=== PATIENT | female | born 1985 | race American Indian/Alaskan Native ===

== ENCOUNTER 2017-01-27 13:06 | Emergency (ER) | payer MEDICAID ==
[2017-01-27 13:46] VITALS: BP 125/83
[2017-01-27] MEDS ORDERED: predniSONE 20 MG Tab PO ONE (14:19)
[2017-01-27] MEDS ORDERED: Loratadine 10 MG Tab PO ONE (14:20)
--- NOTE | 2017-01-27 14:39 | EDM.PDOC ---
Scribed by Charleen Larios 01/27/17 [id number] for Olivier Pritchard MD ED HPI GENERAL MEDICAL PROBLEM - General Chief Complaint: Skin Complaint Stated Complaint: POISON IV [id number] Time Seen by Provider: 01/27/17 14:00 Source of Information: Reports: Patient, RN, RN Notes Reviewed History Limitations: Reports: No Limitations - History of Present Illness INITIAL COMMENTS - FREE TEXT/NARRATIVE: Exposed to poison jenifer on . Woke on Saturday with itchy, burning rash on face, arms, and neck. Denies swelling in mouth, tongue or throat. Location: Reports: Face, Neck, Upper Extremity, Left, Upper Extremity, Right Severity: Severe Improves with: Reports: None Worsens with: Reports: None Associated Symptoms: Reports: No Other Symptoms Face Pain Score (Numeric/FACES): 6 - Related Data Allergies Allergy/AdvReac Type Severity Reaction Status Date / Time animal dander Allergy Itching Verified 01/27/17 13:42 Home Meds: Home Meds . [No Known Home Meds] 05/22/14 [History] Past Medical History - Past Health History Medical/Surgical History: Denies Medical/Surgical History Other Dermatologic History: tatoos to upper arms,hands, back and Rt leg Social & Family History - Family History Cardiac: Reports: Other (See Below) Other Cardiac Family History: "heart disease" Endocrine/Metabolic: Reports: Diabetes, type II - Tobacco Use Smoking Status *Q: Never Smoker Second Hand Smoke Exposure: No - Alcohol Use Days Per Week of Alcohol Use: 0 Number of Drinks Per Day: 3 Total Drinks Per Week: 0 - Recreational Drug Use Recreational Drug Use: Yes Drug Use in Last 12 Months: Yes Recreational Drug Type: Reports: Marijuana/Hashish Recreational Drug Use Frequency: Socially Recreational Drug Last Use: JULY 2015 ED ROS GENERAL - Review of Systems Review Of Systems: ROS reveals no pertinent complaints other than HPI. ED EXAM, SKIN/RASH Exam: See Below Exam Limited By: No Limitations General Appearance: Alert, WD/WN, No Apparent Distress Eye Exam: Bilateral Eye: Normal Inspection Ears: Normal External Exam, Normal Canal, Hearing Grossly Normal, Normal TMs Nose: Normal Inspection, Normal Mucosa, No Blood Throat/Mouth: Normal Inspection, Normal Lips, Normal Teeth, Normal Gums, Normal Oropharynx, Normal Voice, No Airway Compromise Head: Atraumatic, Normocephalic Neck: Normal Inspection, Supple, Non-Tender, Full Range of Motion Respiratory/Chest: No Respiratory Distress, Lungs Clear, Normal Breath Sounds, No Accessory Muscle Use, Chest Non-Tender Cardiovascular: Normal Peripheral Pulses, Regular Rate, Rhythm, No Edema, No Gallop, No JVD, No Murmur, No Rub Back Exam: Normal Inspection, Full Range of Motion, NT Extremities: Normal Inspection, Normal Range of Motion, Non-Tender, No Pedal Edema, Normal Capillary Refill Neurological: Alert, Oriented, CN II-XII Intact, Normal Cognition, Normal Gait, Normal Reflexes, No Motor/Sensory Deficits Psychiatric: Normal Affect, Normal Mood Skin: Other (slightly erythematous raised vesicles and bulla with excoriations to face, neck, and bilateral upper extremities. ) Lymphatic: No Adenopathy Course - Vital Signs Last Recorded V/S: Last Vital Signs Temp 37.2 C 01/27/17 13:45 Pulse 63 01/27/17 13:45 Resp 16 01/27/17 13:45 BP 125/83 01/27/17 13:45 Pulse Ox 100 01/27/17 13:45 - Orders/Labs/Meds Meds: Medications Discontinued Medications Generic Name Dose Route Start Last Admin Trade Name Freq PRN Reason Stop Dose Admin Loratadine 20 mg 01/27/17 14:20 Claritin PO 01/27/17 14:21 ONETIME ONE Prednisone 40 mg 01/27/17 14:19 Prednisone PO 01/27/17 14:20 ONETIME ONE Departure - Departure Time of Disposition: 14:19 Disposition: Home, Self-Care 01 Condition: Good Clinical Impression: Poison jenifer dermatitis - Discharge Information Instructions: Poison Jenifer Dermatitis, [id number] Forms: ED Department Discharge Additional Instructions: RX: Prednisone 20mg. RX: Zyrtec 10mg. Use OTC calamine lotion. Followup in clinic if not improving in 3 days. I have read and agree with the documentation that has been completed regarding this visit. By signing this record, I attest that the documentation was completed in my physical presence and is an accurate record of the encounter.
== END 2017-01-27 15:00 | disposition home or self-care (01) ==
LOC: DL.ED 13:06
DX: L23.7 Allergic contact dermatitis due to plants, except food (principal); E11.9 Type 2 diabetes mellitus without complications; Z91.09 Other allergy status, other than to drugs and biological substances
CPT/HCPCS: 99282; A9270

== ENCOUNTER 2018-02-07 23:09 | Inpatient (IN) | payer MEDICAID ==
[2018-02-07] MEDS ORDERED: Lactated Ringers 1,000 ML IV SCH (23:30)
[2018-02-07] MEDS ORDERED: Sodium Chloride 0.9% 100 ML ONE (23:48)
[2018-02-07] MEDS: Ampicillin 2 GM in Sodium Chloride 0.9% 100 ML IV ONE (23:57)
[2018-02-08] MEDS ORDERED: Zolpidem 5 MG Tab PO PRN (00:28)
[2018-02-08] MEDS ORDERED: Benzocaine/Menthol 20%-0.5% Spray 56 GM Canister TOP PRN (00:28)
[2018-02-08] MEDS ORDERED: Tranexamic Acid 1,000 MG in Sodium Chloride 0.9% 100 ML IV PRN (00:28)
[2018-02-08] MEDS ORDERED: Simethicone 80 MG Tab.Chew PO PRN (00:28)
[2018-02-08] MEDS ORDERED: Misoprostol 400 MCG (4 X 100 MCG TAB) RECTAL PRN (00:28)
[2018-02-08] MEDS ORDERED: Carboprost Tromethamine 250 MCG/1 ML Amp IM PRN (00:28)
[2018-02-08] MEDS ORDERED: Sodium Chloride 0.9% 10 ML Syringe FLUSH PRN (00:28)
[2018-02-08] MEDS ORDERED: Oxytocin 10 Units/1 ML SDV IM PRN (00:28)
--- NOTE | 2018-02-08 00:47 | PCM.DEL ---
L & D Note - General Info Date of Service: 02/08/18 ( at 0018) Mother's Due Date: 03/01/18 (By 29 4/7 week U/S.) - Delivery Note Labor: Spontaneous, Augmented by ARM Delivery Outcome: Livebirth Presentation: Vertex Nuchal Cord: None Anesthesia Type: None Anesthetic: Lidocaine (Xylocaine) 0.5% Plain Amniotic Fluid Description: Meconium Stained Episiotomy Type: None Laceration: None Placenta: Intact, Spontaneous Cord: 3 Vessels Estimated Blood Loss: 350 Resuscitation Needed: No [place]: Suctioned, Bulb Syringe, Cathether, Stimulated, Warmed, [place] Used, Warmer Used Provider: Matias Acuna Score 1 min: 8 Score 5 min: 9 Second Stage Interventions: Reports: Pushing Effectively, Pushing, Pulls Own Legs Back Delivery Comments (Free Text/Narrative):: 32 y.o 11 para 6-1-3-7 female at 37 weeks gestation Active labor 5 cm on admission quickly dialated to complete AROM with moderate meconium stained fluid. , OA, Viable male over intact perineum, cord 3 vessel not around neck, Placenta delivered by simple expression intact, Mother and in good condition. Weight- 6 lbs 6 oz Length- 18 3/4 inches 's 8 and 9. - General Info Date of Service: 02/07/18 (36 6/7 week Active labor) Pain Score: 10 (With contractions) - Review of Systems General: Reports: No Symptoms HEENT: Reports: No Symptoms Pulmonary: Reports: No Symptoms Cardiovascular: Reports: No Symptoms Gastrointestinal: Reports: No Symptoms Genitourinary: Reports: No Symptoms Musculoskeletal: Reports: No Symptoms Neurological: Reports: No Symptoms Psychiatric: Reports: No Symptoms - Patient Data Lab Results Last 24 Hours: Laboratory Results - last 24 hr 02/07/18 Range/Units 23:45 WBC 13.7 H (5.0-10.0) 10^3/uL RBC 3.94 L (4.2-5.4) 10^6/uL Hgb 10.8 L (12.0-16.0) g/dL Hct 32.8 L (37.0-47.0) % MCV 83.2 (80-100) fL MCH 27.4 (27.0-34.0) pg MCHC 32.9 L (33.0-35.0) g/dL Plt Count 269 (150-450) 10^3/uL Med Orders - Current: Current Medications Acetaminophen (Tylenol) 650 mg PO Q6H PRN PRN Reason: mild pain or fever Benzocaine/Menthol (Dermoplast Pain Relief [place]) 0 gm TOP Q4H PRN PRN Reason: Perineal comfort measures Carboprost Tromethamine (Hemabate Ds) 250 mcg IM ASDIRECTED PRN PRN Reason: Excessive vaginal bleeding Docusate Sodium (Colace) 100 mg PO BID PRN PRN Reason: Constipation Tranexamic Acid 1,000 mg/ (Sodium Chloride) 110 mls @ 660 mls/hr IV ONETIME PRN PRN Reason: Bleeding Ibuprofen (Motrin) 800 mg PO Q8H PRN PRN Reason: Mild Pain or Fever Misoprostol (Cytotec) 800 mcg RECTAL ONETIME PRN PRN Reason: Hemorrhage Oxytocin (Pitocin) 10 unit IM ONETIME PRN PRN Reason: Bleeding Prenat Multivit/[place]/Iron/Folic Ac ( Plus Iron) 1 each PO DAILY ELLIOT Simethicone (Simethicone) 80 mg PO Q4H PRN PRN Reason: Gas Sodium Chloride (Saline Flush) 10 ml FLUSH ASDIRECTED PRN PRN Reason: Keep Vein Open Zolpidem Tartrate (Ambien) 5 mg PO BEDTIME PRN PRN Reason: Insomnia Discontinued Medications Ampicillin Sodium 2 gm/ Sodium (Chloride) 100 mls @ 200 mls/hr IV ONETIME ONE Stop: 02/08/18 00:06 Last Admin: 02/07/18 23:57 Dose: 200 mls/hr Sodium Chloride (Normal Saline) Confirm Administered Dose 100 mls @ as directed .ROUTE .STK-MED ONE Stop: 02/07/18 23:49 - Exam General: Alert, Oriented, Cooperative, Moderate Distress (from contractions) HEENT: Pupils Equal, Pupils Reactive, EOMI, Mucous Membr. Moist/[place] Neck: Supple, Trachea Midline Lungs: Clear to Auscultation, Normal Respiratory Effort Cardiovascular: Regular Rate, Regular Rhythm, No Murmurs GI/Abdominal Exam: Normal Bowel Sounds, Soft, Non-Tender, No Distention (Female) Exam: Normal External Exam, Normal Bimanual Exam, Cervical Dilatation (Complete with buldging bag of bell AROM Moderate meconium stained fluid), Enlarged Uterus, Heart Tones (130's to 140's) Back Exam: Normal Inspection, Full Range of Motion Extremities: Normal Inspection, Normal Range of Motion, Non-Tender, No Pedal Edema Skin: Warm, Dry, Intact Neurological: No New Focal Deficit Psy/Mental Status: Alert, Normal Affect, Normal Mood - Problem List Review Problem List Initiated/Reviewed/Updated: Yes - My Orders Last 24 Hours: My Active Orders 02/08/18 00:28 Cooling Warming Measures [RC] ASDIRECTED Acetaminophen [Tylenol] 650 mg PO Q6H PRN Benzocaine/Menthol [Dermoplast Pain Relief [place]] See Dose Instructions TOP Q4H PRN Carboprost Tromethamine [Hemabate DS] 250 mcg IM ASDIRECTED PRN Docusate Sodium [Colace] 100 mg PO BID PRN Ibuprofen [Motrin] 800 mg PO Q8H PRN Misoprostol [Cytotec] 800 mcg RECTAL ONETIME PRN Oxytocin [Pitocin] 10 unit IM ONETIME PRN Simethicone 80 mg PO Q4H PRN Sodium Chloride 0.9% [Saline Flush] 10 ml FLUSH ASDIRECTED PRN Tranexamic Acid [Cyklokapron] 1,000 mg Sodium Chloride 0.9% [Normal Saline] 100 ml IV ONETIME Zolpidem [Ambien] 5 mg PO BEDTIME PRN Resuscitation Status Routine 02/08/18 00:31 Patient Status [ADT] Routine Notify Provider Vital Signs OB [RC] ASDIRECTED Up ad Sasha [RC] ASDIRECTED Assess Lochia [WOMSER] Per Unit Routine Assess Uterine Involution [WOMSER] Per Unit Routine Breast Pump [WOMSER] Per Unit Routine Ice Therapy [OM.PC] Per Unit Routine Perineal Care [OM.PC] Per Unit Routine Saline Lock Insert [OM.PC] Urgent Sitz Bath [OM.PC] Per Unit Routine 02/08/18 00:33 Vital Signs [RC] PFP 02/08/18 09:00 Vit with Ca/FA/Iron [ Plus Iron] 1 each PO DAILY 02/09/18 06:00 CBC W/O DIFF,HEMOGRAM [HEME] Routine - Assessment Assessment:: 36 6/7 week IUP 11 Para 5-1-3-6 Grand multiparous Active labor Advanced dilitation Moderate meconium stained fluid - Plan Plan:: Expect vaginal delivery All questions answered. Dr. Acuna called for . Ampicillin 2 grams IV given per group B strep protocol since before 37 weeks gestation on admission.
[2018-02-08] MEDS ORDERED: Oxytocin/Normal Saline 30 UNIT/500 ML BAG IV SCH (01:30)
[2018-02-08] MEDS: Ibuprofen 800 MG Tab PO PRN ×3 (03:04→21:20)
[2018-02-08] MEDS: Ampicillin 2 GM in Sodium Chloride 0.9% 100 ML IV ONE (03:07)
--- NOTE | 2018-02-08 07:39 | PCM.PNPP ---
- General Info Date of Service: 02/08/18 (PPD # 0 S/P ) Functional Status: Reports: Pain Controlled, Tolerating Diet, Ambulating - Review of Systems General: Reports: No Symptoms HEENT: Reports: No Symptoms Pulmonary: Reports: No Symptoms Cardiovascular: Reports: No Symptoms Gastrointestinal: Reports: No Symptoms Genitourinary: Reports: No Symptoms Musculoskeletal: Reports: No Symptoms Skin: Reports: No Symptoms Neurological: Reports: No Symptoms Psychiatric: Reports: No Symptoms - General Info Date of Service: 02/08/18 (PPD # 0 S/P ) - Patient Data Weight - Most Recent: 146 lb Lab Results - Last 24 Hours: Laboratory Results - last 24 hr 02/07/18 Range/Units 23:45 WBC 13.7 H (5.0-10.0) 10^3/uL RBC 3.94 L (4.2-5.4) 10^6/uL Hgb 10.8 L (12.0-16.0) g/dL Hct 32.8 L (37.0-47.0) % MCV 83.2 (80-100) fL MCH 27.4 (27.0-34.0) pg MCHC 32.9 L (33.0-35.0) g/dL Plt Count 269 (150-450) 10^3/uL Med Orders - Current: Current Medications Acetaminophen (Tylenol) 650 mg PO Q6H PRN PRN Reason: mild pain or fever Benzocaine/Menthol (Dermoplast Pain Relief [place]) 0 gm TOP Q4H PRN PRN Reason: Perineal comfort measures Carboprost Tromethamine (Hemabate Ds) 250 mcg IM ASDIRECTED PRN PRN Reason: Excessive vaginal bleeding Docusate Sodium (Colace) 100 mg PO BID PRN PRN Reason: Constipation Tranexamic Acid 1,000 mg/ (Sodium Chloride) 110 mls @ 660 mls/hr IV ONETIME PRN PRN Reason: Bleeding Oxytocin/Sodium Chloride (Pitocin In Ns 30 Unit/500 Ml) 30 unit in 500 mls @ 2 mls/hr IV TITRATE ELLIOT; Protocol Last Admin: 02/08/18 00:19 Dose: 2 munits/min, 500 mls/hr Lactated Ringer's (Ringers, Lactated) 1,000 mls @ 125 mls/hr IV ASDIRECTED ELLIOT Last Admin: 02/08/18 04:52 Dose: 125 mls/hr Ibuprofen (Motrin) 800 mg PO Q8H PRN PRN Reason: Mild Pain or Fever Last Admin: 02/08/18 03:04 Dose: 800 mg Misoprostol (Cytotec) 800 mcg RECTAL ONETIME PRN PRN Reason: Hemorrhage Oxytocin (Pitocin) 10 unit IM ONETIME PRN PRN Reason: Bleeding Prenat Multivit/[place]/Iron/Folic Ac ( Plus Iron) 1 each PO DAILY ELLIOT Simethicone (Simethicone) 80 mg PO Q4H PRN PRN Reason: Gas Sodium Chloride (Saline Flush) 10 ml FLUSH ASDIRECTED PRN PRN Reason: Keep Vein Open Zolpidem Tartrate (Ambien) 5 mg PO BEDTIME PRN PRN Reason: Insomnia Discontinued Medications Ampicillin Sodium 2 gm/ Sodium (Chloride) 100 mls @ 200 mls/hr IV ONETIME ONE Stop: 02/08/18 00:06 Last Admin: 02/08/18 03:07 Dose: 200 mls/hr Sodium Chloride (Normal Saline) Confirm Administered Dose 100 mls @ as directed .ROUTE .STK-MED ONE Stop: 02/07/18 23:49 - Interaction Disposition, : [place] in Room with Family Infant Interaction: Holding Infant Feeding: Breastfed ; Nursed Well Support Person: Significant Other - Recovery Exam Fundal Tone: Firm Fundal Level: At Umbilicus Fundal Placement: Midline Lochia Amount: Moderate Lochia Color: Rubra/Red Perineum Description: Intact, Minimal Bruising/Swelling Episiotomy/Laceration: None Bladder Status: Nonpalpable, Voiding Urinary Elimination: Voided - Exam General: Alert, Oriented, Cooperative, No Acute Distress HEENT: Pupils Equal, Pupils Reactive, EOMI, Mucous Membr. Moist/[place] Neck: Supple Lungs: Clear to Auscultation, Normal Respiratory Effort Cardiovascular: Regular Rate, Regular Rhythm, No Murmurs GI/Abdominal Exam: Normal Bowel Sounds, Soft, Non-Tender, No Organomegaly, No Distention Extremities: Normal Inspection, Normal Range of Motion, Non-Tender, No Pedal Edema, Normal Capillary Refill Skin: Warm, Dry, Intact Neurological: No New Focal Deficit, Normal Gait, Normal Speech, Normal Tone Psy/Mental Status: Alert, Normal Affect, Normal Mood - Problem List Review Problem List Initiated/Reviewed/Updated: Yes - My Orders Last 24 Hours: My Active Orders 02/07/18 23:30 Lactated Ringers [Ringers, Lactated] 1,000 ml IV ASDIRECTED 02/08/18 00:28 Cooling Warming Measures [RC] ASDIRECTED Acetaminophen [Tylenol] 650 mg PO Q6H PRN Benzocaine/Menthol [Dermoplast Pain Relief [place]] See Dose Instructions TOP Q4H PRN Carboprost Tromethamine [Hemabate DS] 250 mcg IM ASDIRECTED PRN Docusate Sodium [Colace] 100 mg PO BID PRN Ibuprofen [Motrin] 800 mg PO Q8H PRN Misoprostol [Cytotec] 800 mcg RECTAL ONETIME PRN Oxytocin [Pitocin] 10 unit IM ONETIME PRN Simethicone 80 mg PO Q4H PRN Sodium Chloride 0.9% [Saline Flush] 10 ml FLUSH ASDIRECTED PRN Tranexamic Acid [Cyklokapron] 1,000 mg Sodium Chloride 0.9% [Normal Saline] 100 ml IV ONETIME Zolpidem [Ambien] 5 mg PO BEDTIME PRN Resuscitation Status Routine 02/08/18 00:31 Patient Status [ADT] Routine Notify Provider Vital Signs OB [RC] ASDIRECTED Assess Lochia [WOMSER] Per Unit Routine Assess Uterine Involution [WOMSER] Per Unit Routine Breast Pump [WOMSER] Per Unit Routine Ice Therapy [OM.PC] Per Unit Routine Perineal Care [OM.PC] Per Unit Routine Saline Lock Insert [OM.PC] Urgent Sitz Bath [OM.PC] Per Unit Routine 02/08/18 00:33 Vital Signs [RC] 08,20 02/08/18 01:30 Oxytocin/Normal Saline [Pitocin in NS 30 UNIT/500 ML] 30 unit in 500 ml IV TITRATE 02/08/18 09:00 Vit with Ca/FA/Iron [ Plus Iron] 1 each PO DAILY 02/09/18 06:00 CBC W/O DIFF,HEMOGRAM [HEME] Routine - Assessment Assessment:: PPD # 0 S/P Doing well - Plan Plan:: Continue present care.
[2018-02-08] MEDS ORDERED: Prenatal Multivitamin with Calcium/Folic Acid/Iron Tab PO SCH (09:00)
[2018-02-08] MEDS ORDERED: Calcium Carbonate 500 MG Tab.Chew PO PRN (09:38)
[2018-02-08] MEDS: Acetaminophen 325 MG Tab PO PRN (10:04)
[2018-02-08] MEDS: Docusate Sodium 100 MG Cap PO PRN ×2 (10:04→21:20)
[2018-02-09] MEDS: Acetaminophen 325 MG Tab PO PRN (01:03)
--- NOTE | 2018-02-09 06:03 | PCM.PNPP ---
- General Info Date of Service: 02/09/18 (PPD # 1 S/P ) Functional Status: Reports: Pain Controlled, Tolerating Diet, Ambulating, Urinating - Review of Systems General: Reports: No Symptoms HEENT: Reports: No Symptoms Pulmonary: Reports: No Symptoms Cardiovascular: Reports: No Symptoms Gastrointestinal: Reports: No Symptoms Genitourinary: Reports: No Symptoms Musculoskeletal: Reports: No Symptoms Skin: Reports: No Symptoms Neurological: Reports: No Symptoms Psychiatric: Reports: No Symptoms - General Info Date of Service: 02/09/18 (PPD # 1 S/P ) - Patient Data Vital Signs - Most Recent: Last Vital Signs Temp 98.6 F 02/08/18 20:00 Pulse 106 H 02/08/18 20:00 Resp 18 02/08/18 20:00 BP 110/74 02/08/18 20:00 Pulse Ox 100 02/08/18 20:00 Weight - Most Recent: 146 lb Med Orders - Current: Current Medications Acetaminophen (Tylenol) 650 mg PO Q6H PRN PRN Reason: mild pain or fever Last Admin: 02/09/18 01:03 Dose: 650 mg Benzocaine/Menthol (Dermoplast Pain Relief [place]) 0 gm TOP Q4H PRN PRN Reason: Perineal comfort measures Calcium Carbonate/Glycine (Tums) 1,000 mg PO Q4H PRN PRN Reason: Dyspepsia Last Admin: 02/08/18 10:03 Dose: 1,000 mg Carboprost Tromethamine (Hemabate Ds) 250 mcg IM ASDIRECTED PRN PRN Reason: Excessive vaginal bleeding Docusate Sodium (Colace) 100 mg PO BID PRN PRN Reason: Constipation Last Admin: 02/08/18 21:20 Dose: 100 mg Tranexamic Acid 1,000 mg/ (Sodium Chloride) 110 mls @ 660 mls/hr IV ONETIME PRN PRN Reason: Bleeding Oxytocin/Sodium Chloride (Pitocin In Ns 30 Unit/500 Ml) 30 unit in 500 mls @ 2 mls/hr IV TITRATE ELLIOT; Protocol Last Titration: 02/08/18 00:35 Dose: Infused Lactated Ringer's (Ringers, Lactated) 1,000 mls @ 125 mls/hr IV ASDIRECTED ELLIOT Last Admin: 02/08/18 04:52 Dose: 125 mls/hr Ibuprofen (Motrin) 800 mg PO Q8H PRN PRN Reason: Mild Pain or Fever Last Admin: 02/08/18 21:20 Dose: 800 mg Misoprostol (Cytotec) 800 mcg RECTAL ONETIME PRN PRN Reason: Hemorrhage Oxytocin (Pitocin) 10 unit IM ONETIME PRN PRN Reason: Bleeding Prenat Multivit/[facility]/Iron/Folic Ac ( Plus Iron) 1 each PO DAILY ELLIOT Last Admin: 02/08/18 10:04 Dose: 1 each Simethicone (Simethicone) 80 mg PO Q4H PRN PRN Reason: Gas Last Admin: 02/08/18 10:04 Dose: 80 mg Sodium Chloride (Saline Flush) 10 ml FLUSH ASDIRECTED PRN PRN Reason: Keep Vein Open Zolpidem Tartrate (Ambien) 5 mg PO BEDTIME PRN PRN Reason: Insomnia Discontinued Medications Ampicillin Sodium 2 gm/ Sodium (Chloride) 100 mls @ 200 mls/hr IV ONETIME ONE Stop: 02/08/18 00:06 Last Admin: 02/08/18 03:07 Dose: 200 mls/hr Sodium Chloride (Normal Saline) Confirm Administered Dose 100 mls @ as directed .ROUTE .STK-MED ONE Stop: 02/07/18 23:49 Last Admin: 02/08/18 19:33 Dose: Not Given - Infant Interaction Infant Disposition, : in Room with Family Interaction: Holding Infant Infant Feeding: Breastfed ; Nursed Well Support Person: Significant Other - Recovery Exam Fundal Tone: Firm Fundal Level: 1 Fingerbreadths Below Umbilicus Fundal Placement: Midline Lochia Amount: Small Lochia Color: Rubra/Red Perineum Description: Intact, Minimal Bruising/Swelling Episiotomy/Laceration: None Bladder Status: Voiding Urinary Elimination: Voided - Exam General: Alert, Oriented, Cooperative, No Acute Distress HEENT: Pupils Equal, Pupils Reactive, EOMI Neck: Supple Lungs: Clear to Auscultation, Normal Respiratory Effort Cardiovascular: Regular Rate, Regular Rhythm, No Murmurs GI/Abdominal Exam: Normal Bowel Sounds, Soft, Non-Tender, No Distention Extremities: Normal Inspection, Normal Range of Motion, Non-Tender, No Pedal Edema Skin: Warm, Dry, Intact Neurological: No New Focal Deficit, Normal Gait, Normal Speech, Normal Tone Psy/Mental Status: Alert, Normal Affect, Normal Mood - Problem List Review Problem List Initiated/Reviewed/Updated: Yes - My Orders Last 24 Hours: My Active Orders 02/08/18 09:00 Vit with Ca/FA/Iron [ Plus Iron] 1 each PO DAILY 02/08/18 09:38 Calcium Carbonate [Tums] 1,000 mg PO Q4H PRN 02/09/18 05:30 CBC W/O DIFF,HEMOGRAM [HEME] Routine - Assessment Assessment:: PPD # 1 S/P Doing well - Plan Plan:: Discharge to home Follow-up with Dr. Nguyễn for 6 week check-up Ibuprofen for pain as needed.
[2018-02-09] MEDS: Ibuprofen 800 MG Tab PO PRN ×2 (06:41→14:24)
[2018-02-09] MEDS ORDERED: Diphtheria,Pertussis(Acell),Tetanus Vaccine 0.5 ML SDV IM ONE (13:09)
[2018-02-09] MEDS: Docusate Sodium 100 MG Cap PO PRN (14:24)
[2018-02-09 16:28] VITALS: BP 105/60
--- NOTE | 2018-02-10 09:13 | HP ---
CHIEF COMPLAINT: "I am in labor." HISTORY OF PRESENT ILLNESS: Ms. Jean is a 32-year-old 11, para 6-1-3-7 female, who reported to Labor and Delivery with increasing force and frequency of contractions. On admission, she was noted to be 5 cm dilated and uncomfortable. She denies any nausea, vomiting, or diarrhea. No fever or chills. No hematochezia, hematemesis, or hematuria. No dysuria, frequency, or urgency with urination. No leg pain, leg edema, or back pain. She is very uncomfortable secondary to contractions and pelvic pressure. Her contractions are every 3 minutes apart. She has not had any issues in the . She was seeing Dr. Steve Nguyễn and had approximately 5 visits. PAST MEDICAL HISTORY: She denies any anemia, asthma, breast lesions, cancer, diabetes, seizure disorder, thyroid disorder, thromboembolic disease, blood transfusions, hypertension, heart disease, or lung problems. FAMILY HISTORY: Positive for diabetes and heart disease. No cancer, thyroid disease, or seizure disorder. PAST SURGICAL HISTORY: [place] tooth extraction and suction D and C for elective . OBSTETRICAL HISTORY: 10/11/2015, normal spontaneous vaginal delivery at 38-3/7 weeks' gestation. 10/03/2014, therapeutic AB in [place]. 08/06/2010, normal spontaneous vaginal delivery of a viable female infant at 40 weeks' gestation. 06/08/2009, normal spontaneous vaginal delivery of a female at 39 weeks' gestation. 07/07/2008, normal spontaneous vaginal delivery of a viable female infant at 39 weeks' gestation. 2007, spontaneous AB. 09/03/2006, delivery via normal spontaneous vaginal delivery of a viable male infant at 39-5/7 weeks' gestation. 2005, spontaneous AB. 01/03/2005, delivery of viable female via normal spontaneous vaginal delivery at 39 weeks' gestation. 10/05/2003, normal spontaneous vaginal delivery of a viable male at 36 weeks' gestation. SOCIAL HISTORY: She lives in [place] with 7 children, her mother, and her significant other. She denies any tobacco use, alcohol use, or illicit drug use. ALLERGIES: No known drug allergies. MEDICATIONS: vitamins. REVIEW OF SYSTEMS: All pertinent positive and negative review of systems per HPI. All other systems reviewed and are negative. A 10-point review of systems discussed with the patient. She has no issues. LABORATORY DATA: Blood type O positive. Antibody screen negative. Rubella immune. RPR nonreactive. Hepatitis B surface antigen nonreactive. HIV nonreactive. Hepatitis C antibody nonreactive. Group B Strep vaginal culture pending. OBJECTIVE: General: Well-developed, well-nourished female, in acute distress secondary to contractions. HEENT: Unremarkable. Neck: Supple without adenopathy. No thyromegaly. Lungs: Clear to auscultation. No wheezing, rhonchi, or rales noted. Cardiovascular: Regular rate and rhythm without murmurs. Abdomen: Gravid. Fundal height 36 cm. heart tones 130s to 140s. Contractions every 2 to 3 minutes apart. Genitourinary: Cervix is completely dilated, bulging bag of bell. Extremities: No edema, erythema, or tenderness noted. ASSESSMENT: 1. A 36-6/7 weeks' intrauterine . 2. Active labor, advanced dilatation. 3. Grand multiparous. PLAN: 1. Expect vaginal delivery. 2. We will AROM. 3. The patient treated with ampicillin 2 g IV before delivering secondary to no group B Strep vaginal culture results, and she is less than 37 weeks' gestation on admission. 4. Dr. Acuna called to evaluate the at . All questions answered. [facility] /[id number]
--- NOTE | 2018-02-10 09:15 | DISCH ---
INDICATION FOR ADMISSION: She is a 32-year-old 11, para 6-1-3-7 female, who reported to Labor and Delivery at 37 weeks' gestation in active labor. She was 5 cm on admission. She quickly dilated to complete. We did have artificial rupture of membranes with moderate meconium-stained fluid noted. She had a normal spontaneous vaginal delivery of a viable male over an intact perineum weighing 6 pounds 6 ounces and 18-3/4 inches long with scores of 8 at 1 minute and 9 at 5 minutes. She tolerated the rest of her hospital stay quite well. She was afebrile. Vital signs were stable. She tolerated her diet well and ambulated quite well. No complications occurred throughout her hospital stay. She was discharged to home on day #1. LABORATORY AND DIAGNOSTIC STUDIES: 02/07/2018, WBC 13.7, hemoglobin 10.8, hematocrit 32.8, and platelet count 269,000. 02/09/2018, WBC 13.0, hemoglobin 10.1, hematocrit 31.6, and platelet count 236,000. DISCHARGE INSTRUCTIONS: 1. Discharge to home. 2. Follow up with Dr. Nguyễn for 6-week checkup or sooner if problems develop. 3. No douching, tampons, or intercourse for 6 weeks. 4. Ibuprofen 800 mg 1 tab every 8 hours p.r.n. for pain. 5. Tylenol p.r.n. for pain. 6. Discharge instructions including activity, followup, medications, diet, and wound care were discussed with the patient. She understands these and is willing to comply with these. DISCHARGE DIAGNOSES: 1. A 37 weeks' intrauterine . 2. Active labor. 3. Artificial rupture of membranes. 4. Grand multiparous. 5. Moderate meconium-stained fluid. 6. Normal spontaneous vaginal delivery of a viable male weighing 6 pounds 6 ounces and 18-3/4 inches long with scores of 8 at 1 minute and 9 at 5 minutes. 7. Chronic anemia of . [facility] /[id number]
== END 2018-02-09 14:25 | disposition home or self-care (01) | DRG 775 ==
LOC: DL.OBCHECK 23:09 → DL.OB 23:50 → OBSVTOIN 02-08 00:18
PROVIDERS: ADMIT Obstetrics & Gynecology; ATTEND Obstetrics & Gynecology
PROC: 10E0XZZ Delivery of Products of Conception, External Approach (ICD-10-PCS; principal; 2018-02-08)
PROC: 10907ZC Drainage of Amniotic Fluid, Therapeutic from Products of Conception, Via Natural or Artificial Opening (ICD-10-PCS; 2018-02-08)
DX: O77.0 Labor and delivery complicated by meconium in amniotic fluid (principal); Z3A.36 36 weeks gestation of pregnancy; Z37.0 Single live birth; O99.013 Anemia complicating pregnancy, third trimester; D63.8 Anemia in other chronic diseases classified elsewhere
CPT/HCPCS: 36415; 59409; 85027; 90471; 90715; A9270-GY; J0290; J2590; J7050; J7120

== ENCOUNTER 2020-06-27 10:08 | Inpatient (IN) | payer MEDICAID ==
[2020-06-27] MEDS ORDERED: Misoprostol 400 MCG (4 X 100 MCG TAB) RECTAL PRN ×2 (11:00→11:03)
[2020-06-27] MEDS ORDERED: Oxytocin/Normal Saline 30 UNIT/500 ML BAG IV SCH (11:00)
[2020-06-27] MEDS ORDERED: Lidocaine 1% 30 ML SDV INJECT PRN (11:00)
[2020-06-27] MEDS ORDERED: Tranexamic Acid 1,000 MG in Sodium Chloride 0.9% 100 ML IV PRN ×2 (11:00→11:03)
[2020-06-27] MEDS ORDERED: Methylergonovine 0.2 MG/1 ML Amp IM PRN (11:00)
[2020-06-27] MEDS ORDERED: Carboprost Tromethamine 250 MCG/1 ML Amp IM PRN ×2 (11:00→11:03)
[2020-06-27] MEDS ORDERED: Sodium Chloride 0.9% 10 ML Syringe FLUSH PRN ×2 (11:00→11:03)
[2020-06-27] MEDS ORDERED: Lactated Ringers 1,000 ML IV SCH (11:00)
[2020-06-27] MEDS ORDERED: Lactated Ringers 1,000 ML IV ONE (11:00)
[2020-06-27] MEDS ORDERED: Docusate Sodium 100 MG Cap PO PRN (11:03)
[2020-06-27] MEDS ORDERED: Oxytocin 10 Units/1 ML SDV IM PRN (11:03)
[2020-06-27] MEDS ORDERED: Benzocaine/Menthol 20%-0.5% Spray 56 GM Canister TOP PRN (11:03)
[2020-06-27] MEDS ORDERED: Simethicone 80 MG Tab.Chew PO PRN (11:03)
[2020-06-27] MEDS ORDERED: Zolpidem 5 MG Tab PO PRN (11:03)
--- NOTE | 2020-06-27 12:20 | PCM.LDHP ---
L&D History of Present Illness - General Date of Service: 06/27/20 Admit Problem/Dx: Patient Status Order with Admit Dx/Problem 06/27/20 11:00 Patient Status [ADT] Routine Admission Diagnosis/Problem Admission Diagnosis/Problem labor - History of Present Illness Introduction:: Patient is a 35 yo at 34w3d who presented to Labor & Delivery in active labor. She was noted to be dilated to 7 or 8 cm. She thought her bag of water broke upon arrival. Her contractions started around 8 AM and picked up in frequency and intensity. She had late care with this due to uncertain dating. Her first ultrasound showed a 31 week . She had elevated blood pressures at her 2 visits but PIH labs were within normal limits. She denies headache, vision changes, RUQ abdominal pain, lower extremity edema. 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 Neurological History: Reports: None Dermatologic History: Reports: Urticaria Other Dermatologic History: tatoos to upper arms,hands, back and Rt leg - Past Surgical History HEENT Surgical History: Reports: Oral Surgery Social & Family History - Family History Family Medical History: No Pertinent Family History Cardiac: Reports: Other (See Below) Other Cardiac Family History: "heart disease" Endocrine/Metabolic: Reports: Diabetes, type II Oncologic: Reports: Breast - Tobacco Use Tobacco Use Status *Q: Never Tobacco User - Caffeine Use Caffeine Use: Reports: Coffee, Soda - Alcohol Use Alcohol Use History: No - Recreational Drug Use Recreational Drug Use: No H&P Review of Systems - Review of Systems: Review Of Systems: See Below General: Denies: Fatigue HEENT: Denies: Headaches, Visual Changes Pulmonary: Denies: Shortness of Breath, Cough Cardiovascular: Reports: Blood Pressure Problem. Denies: Edema, Lightheadedness Gastrointestinal: Reports: Nausea, Vomiting. Denies: Abdominal Pain Skin: Denies: Rash Neurological: Denies: Dizziness, Headache L&D Exam - Exam Exam: See Below - Vital Signs Vital Signs: Vital Signs (72 hours) 06/27/20 06/27/20 06/27/20 10:44 11:00 11:11 Temperature [ 97.3 F 98.0 F Temporal] Pulse, 68 63 Peripheral [ Right Brachial] Respiratory Rate Blood Pressure 135/90 145/99 H [Right Upper Arm] O2 Sat by Pulse Oximetry 06/27/20 06/27/20 06/27/20 11:26 11:41 11:56 Temperature [ Temporal] Pulse, 63 66 61 Peripheral [ Right Brachial] Respiratory Rate Blood Pressure 143/95 H 148/104 H 145/98 H [Right Upper Arm] O2 Sat by Pulse Oximetry 06/27/20 06/27/20 06/27/20 12:11 12:26 12:56 Temperature [ 98.0 F Temporal] Pulse, 77 75 79 Peripheral [ Right Brachial] Respiratory Rate Blood Pressure 156/104 H 140/95 H 142/101 H [Right Upper Arm] O2 Sat by Pulse Oximetry 06/27/20 06/27/20 06/27/20 13:30 16:00 20:00 Temperature [ 98.1 F 98.1 F Temporal] Pulse, 75 70 75 Peripheral [ Right Brachial] Respiratory 16 18 Rate Blood Pressure 143/87 H 146/94 H 130/80 [Right Upper Arm] O2 Sat by Pulse 98 Oximetry 06/28/20 06/28/20 00:50 05:50 Temperature [ 98.0 F 97.9 F Temporal] Pulse, 61 63 Peripheral [ Right Brachial] Respiratory 18 18 Rate Blood Pressure 146/98 H 137/94 H [Right Upper Arm] O2 Sat by Pulse 97 98 Oximetry - OB Specific Movement: Active Heart Tones: Present Heart Tones per Min: 145 Heart Rate (FHR) Variability: Moderate (6-25 bmp) Presentation: Left Occiput Anterior (CHRISTINA) - Exam General: Alert, Oriented HEENT: Conjunctiva Clear Neck: Supple, Trachea Midline Lungs: Clear to Auscultation, Normal Respiratory Effort Cardiovascular: Regular Rate, Regular Rhythm, Normal S1, Normal S2 GI/Abdominal Exam: Soft, Non-Tender Extremities: No Pedal Edema Skin: Warm, Dry, Intact Neurological: Reflexes Equal Bilateral - Patient Data Lab Results Last 24 hrs: Laboratory Results - last 24 hr 06/27/20 Range/Units 11:40 WBC 11.4 H (5.0-10.0) 10^3/uL RBC 3.96 L (4.2-5.4) 10^6/uL Hgb 11.4 L (12.0-16.0) g/dL Hct 34.7 L (37.0-47.0) % MCV 87.6 D (80-100) fL MCH 28.8 (27.0-34.0) pg MCHC 32.9 L (33.0-35.0) g/dL Plt Count 220 (150-450) 10^3/uL Result Diagrams: 06/28/20 05:49 06/27/20 11:40 - Problem List (1) labor SNOMED Code(s): 6295063 ICD Code: O60.00 - LABOR WITHOUT DELIVERY, UNSPECIFIED TRIMESTER Status: Acute Current Visit: Yes (2) Grand multipara in labor in third trimester SNOMED Code(s): 307078039, 794634746 ICD Code: O80 - ENCOUNTER FOR FULL-TERM UNCOMPLICATED DELIVERY Status: Acute Current Visit: Yes (3) Advanced maternal age (AMA) in SNOMED Code(s): 232177368 ICD Code: LWV4525 - Status: Acute Current Visit: Yes (4) History of gestational diabetes SNOMED Code(s): 953669233 ICD Code: Z86.32 - PERSONAL HISTORY OF GESTATIONAL DIABETES Status: Acute Current Visit: Yes (5) Gestational hypertension SNOMED Code(s): 027292336 ICD Code: O13.9 - GESTATIONAL HTN W/O SIGNIFICANT PROTEINURIA, UNSP TRIMESTER Status: Acute Current Visit: Yes (6) Rubella immune SNOMED Code(s): 500185613 ICD Code: Z78.9 - OTHER SPECIFIED HEALTH STATUS Status: Acute Current Visit: Yes (7) Anemia during SNOMED Code(s): 279965108 ICD Code: O99.019 - ANEMIA COMPLICATING , UNSPECIFIED TRIMESTER Status: Acute Current Visit: Yes (8) Late care SNOMED Code(s): 363012689, 629924336 ICD Code: O09.30 - SUPRVSN OF PREG W INSUFFICIENT ANTENAT CARE, UNSP TRIMESTER Status: Acute Current Visit: Yes Problem List Initiated/Reviewed/Updated: Yes Orders Last 24hrs: Active Orders 24 hr Category Date Time Status Patient Status [ADT] Routine ADT 06/27/20 11:00 Active Communication Order [RC] ASDIRECTED Care 06/27/20 11:00 Active Heart Tones [RC] PER UNIT ROUTINE Care 06/27/20 11:00 Active Notify Provider Vital Signs OB [RC] ASDIRECTED Care 06/27/20 11:00 Active Notify Provider [RC] PRN Care 06/27/20 11:00 Active Up ad Sasha [RC] ASDIRECTED Care 06/27/20 11:00 Active Up ad Sasha [RC] ASDIRECTED Care 06/27/20 11:03 Active Vital Signs [RC] PER UNIT ROUTINE Care 06/27/20 11:00 Active Vital Signs [RC] PFP Care 06/27/20 11:00 Active Regular Diet [DIET] Diet 06/27/20 Breakfast Active Regular Diet [DIET] Diet 06/27/20 Dinner Active Regular Diet [DIET] Diet 06/27/20 Lunch Active CBC W/O DIFF,HEMOGRAM [HEME] Routine Lab 06/27/20 11:03 Ordered CORONAVIRUS COVID-19 RAPID [MOLEC] Stat Lab 06/27/20 11:35 Received DRUG SCREEN, URINE [URCHEM] Routine Lab 06/27/20 12:19 Ordered Acetaminophen [TylenoL] Med 06/27/20 11:03 Active 650 mg PO Q6H PRN Benzocaine/Menthol [Dermoplast Pain Relief [place]] Med 06/27/20 11:03 Active See Dose Instructions TOP Q4H PRN Carboprost Tromethamine [Hemabate DS] Med 06/27/20 11:00 Active 250 mcg IM ASDIRECTED PRN Docusate Sodium [Colace] Med 06/27/20 11:03 Active 100 mg PO BID PRN Ibuprofen [Motrin] Med 06/27/20 11:03 Active 800 mg PO Q8H PRN Lactated Ringers [Ringers, Lactated] 1,000 ml Med 06/27/20 11:00 Active IV ASDIRECTED Lidocaine 1% [Xylocaine-MPF 1%] Med 06/27/20 11:00 Active 30 ml INJECT ASDIRECTED PRN Methylergonovine [Methergine] Med 06/27/20 11:00 Active 0.2 mg IM ASDIRECTED PRN Oxytocin [Pitocin] Med 06/27/20 11:03 Active 10 unit IM ONETIME PRN Oxytocin/Normal Saline [Pitocin in NS 30 UNIT/500 ML] Med 06/27/20 11:00 Acti ve 30 unit in 500 ml IV TITRATE Vit with Ca/FA/Iron [ Plus Iron] Med 06/28/20 09:00 Active 1 each PO DAILY Simethicone Med 06/27/20 11:03 Active 80 mg PO Q4H PRN Sodium Chloride 0.9% [Saline Flush] Med 06/27/20 11:00 Active 10 ml FLUSH ASDIRECTED PRN Tranexamic Acid [Cyklokapron] 1,000 mg Med 06/27/20 11:00 Active Sodium Chloride 0.9% [Normal Saline] 100 ml IV ONETIME Zolpidem [Ambien] Med 06/27/20 11:03 Active 5 mg PO BEDTIME PRN miSOPROStoL [Cytotec] Med 06/27/20 11:00 Active 800 mcg RECTAL ASDIRECTED PRN miSOPROStoL [Cytotec] Med 06/27/20 11:03 Active 800 mcg RECTAL ONETIME PRN Assess Lochia [WOMSER] Per Unit Routine Oth 06/27/20 11:03 Ordered Assess Uterine Involution [WOMSER] Per Unit Routine Oth 06/27/20 11:03 Ordered Breast Pump [WOMSER] Per Unit Routine Oth 06/27/20 11:03 Ordered Ice Therapy [OM.PC] Per Unit Routine Oth 06/27/20 11:03 Ordered Perineal Care [OM.PC] Per Unit Routine Oth 06/27/20 11:03 Ordered Saline Lock Insert [OM.PC] Routine Oth 06/27/20 11:00 Ordered Saline Lock Insert [OM.PC] Urgent Oth 06/27/20 11:03 Ordered Sitz Bath [OM.PC] Per Unit Routine Oth 06/27/20 11:03 Ordered Resuscitation Status Routine Resus Stat 06/27/20 11:00 Ordered Medication Orders Acetaminophen (Tylenol) 650 mg PO Q6H PRN PRN Reason: mild pain or fever Benzocaine/Menthol (Dermoplast Pain Relief [place]) 0 gm TOP Q4H PRN PRN Reason: Perineal comfort measures Carboprost Tromethamine (Hemabate Ds) 250 mcg IM ASDIRECTED PRN PRN Reason: HEMORRHAGE Docusate Sodium (Colace) 100 mg PO BID PRN PRN Reason: Constipation Tranexamic Acid 1,000 mg/ (Sodium Chloride) 110 mls @ 660 mls/hr IV ONETIME PRN PRN Reason: Bleeding Oxytocin/Sodium Chloride (Pitocin In Ns 30 Unit/500 Ml) 30 unit in 500 mls @ 2 mls/hr IV TITRATE ELLIOT; Protocol Lactated Ringer's (Ringers, Lactated) 1,000 mls @ 125 mls/hr IV ASDIRECTED ELLIOT Ibuprofen (Motrin) 800 mg PO Q8H PRN PRN Reason: Mild Pain or Fever Lidocaine HCl (Xylocaine-Mpf 1%) 30 ml INJECT ASDIRECTED PRN PRN Reason: Perineal Repair Methylergonovine Maleate (Methergine) 0.2 mg IM ASDIRECTED PRN PRN Reason: Hemorrhage Misoprostol (Cytotec) 800 mcg RECTAL ASDIRECTED PRN PRN Reason: Hemorrhage Misoprostol (Cytotec) 800 mcg RECTAL ONETIME PRN PRN Reason: Hemorrhage Oxytocin (Pitocin) 10 unit IM ONETIME PRN PRN Reason: Bleeding Prenat Multivit/[place]/Iron/Folic Ac ( Plus Iron) 1 each PO DAILY ELLIOT Simethicone (Simethicone) 80 mg PO Q4H PRN PRN Reason: Gas Sodium Chloride (Saline Flush) 10 ml FLUSH ASDIRECTED PRN PRN Reason: Keep Vein Open Zolpidem Tartrate (Ambien) 5 mg PO BEDTIME PRN PRN Reason: Insomnia Assessment/Plan Comment:: Admit to Labor and Delivery. Anticipate vaginal delivery. Post hemorrhage cart in room. 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 GBS status unknown and no time for antibiotics. See delivery note for details. Chayo Dumont MD
--- NOTE | 2020-06-27 12:21 | PCM.DEL ---
L & D Note - General Info Date of Service: 06/27/20 - Delivery Note Labor: Spontaneous Delivery Outcome: Livebirth Delivery Method: Spontaneous Vaginal Delivery-Single Presentation: Left Occiput Anterior (CHRISTINA) Nuchal Cord: None Anesthesia Type: None Amniotic Fluid Description: Meconium Stained Episiotomy Type: None Laceration: None Placenta: Intact, Spontaneous Cord: 3 Vessels Estimated Blood Loss: 250 Resuscitation Needed: Yes : Bulb Syringe, Stimulated, Warmed Provider: Chayo Dumont Score 1 min: 8 Score 5 min: 6 Score 10 min: 8 Delivery Comments (Free Text/Narrative):: Patient admitted in labor with advanced cervical dilation. She progressed to complete dilatation and pushed for 10 minutes. A viable female infant delivered over intact perineum. The anterior shoulder was delivered with gentle traction. The was placed on the maternal abdomen and the cord was clamped and cut. Placenta was delivered intact via active management. Oxytocin was initiated immediately following the delivery of the placenta. Cervix, vagina, and perineum were explored and were found to be intact. Infant did require resuscitation with O2 via nasal cannula and then CPAP. Mother remained stable in the delivery room. - General Info Date of Service: 06/27/20 - Patient Data Lab Results Last 24 Hours: Laboratory Results - last 24 hr 06/27/20 Range/Units 11:40 WBC 11.4 H (5.0-10.0) 10^3/uL RBC 3.96 L (4.2-5.4) 10^6/uL Hgb 11.4 L (12.0-16.0) g/dL Hct 34.7 L (37.0-47.0) % MCV 87.6 D (80-100) fL MCH 28.8 (27.0-34.0) pg MCHC 32.9 L (33.0-35.0) g/dL Plt Count 220 (150-450) 10^3/uL Med Orders - Current: Current Medications Acetaminophen (Tylenol) 650 mg PO Q6H PRN PRN Reason: mild pain or fever Benzocaine/Menthol (Dermoplast Pain Relief [place]) 0 gm TOP Q4H PRN PRN Reason: Perineal comfort measures Carboprost Tromethamine (Hemabate Ds) 250 mcg IM ASDIRECTED PRN PRN Reason: HEMORRHAGE Docusate Sodium (Colace) 100 mg PO BID PRN PRN Reason: Constipation Tranexamic Acid 1,000 mg/ (Sodium Chloride) 110 mls @ 660 mls/hr IV ONETIME PRN PRN Reason: Bleeding Oxytocin/Sodium Chloride (Pitocin In Ns 30 Unit/500 Ml) 30 unit in 500 mls @ 2 mls/hr IV TITRATE ELLIOT; Protocol Lactated Ringer's (Ringers, Lactated) 1,000 mls @ 125 mls/hr IV ASDIRECTED ELLIOT Ibuprofen (Motrin) 800 mg PO Q8H PRN PRN Reason: Mild Pain or Fever Lidocaine HCl (Xylocaine-Mpf 1%) 30 ml INJECT ASDIRECTED PRN PRN Reason: Perineal Repair Methylergonovine Maleate (Methergine) 0.2 mg IM ASDIRECTED PRN PRN Reason: Hemorrhage Misoprostol (Cytotec) 800 mcg RECTAL ASDIRECTED PRN PRN Reason: Hemorrhage Misoprostol (Cytotec) 800 mcg RECTAL ONETIME PRN PRN Reason: Hemorrhage Oxytocin (Pitocin) 10 unit IM ONETIME PRN PRN Reason: Bleeding Prenat Multivit/[place]/Iron/Folic Ac ( Plus Iron) 1 each PO DAILY ELLIOT Simethicone (Simethicone) 80 mg PO Q4H PRN PRN Reason: Gas Sodium Chloride (Saline Flush) 10 ml FLUSH ASDIRECTED PRN PRN Reason: Keep Vein Open Zolpidem Tartrate (Ambien) 5 mg PO BEDTIME PRN PRN Reason: Insomnia Discontinued Medications Lactated Ringer's (Ringers, Lactated) 1,000 mls @ 999 mls/hr IV BOLUS ONE Stop: 06/27/20 12:00 - Problem List Review Problem List Initiated/Reviewed/Updated: Yes - My Orders Last 24 Hours: My Active Orders 06/27/20 Breakfast Regular Diet [DIET] 06/27/20 11:00 Patient Status [ADT] Routine Communication Order [RC] ASDIRECTED Heart Tones [RC] PER UNIT ROUTINE Notify Provider Vital Signs OB [RC] ASDIRECTED Notify Provider [RC] PRN Up ad Sasha [RC] ASDIRECTED Vital Signs [RC] PER UNIT ROUTINE Vital Signs [RC] PFP Carboprost Tromethamine [Hemabate DS] 250 mcg IM ASDIRECTED PRN Lactated Ringers [Ringers, Lactated] 1,000 ml IV ASDIRECTED Lidocaine 1% [Xylocaine-MPF 1%] 30 ml INJECT ASDIRECTED PRN Methylergonovine [Methergine] 0.2 mg IM ASDIRECTED PRN Oxytocin/Normal Saline [Pitocin in NS 30 UNIT/500 ML] 30 unit in 500 ml IV TITRATE Sodium Chloride 0.9% [Saline Flush] 10 ml FLUSH ASDIRECTED PRN Tranexamic Acid [Cyklokapron] 1,000 mg Sodium Chloride 0.9% [Normal Saline] 100 ml IV ONETIME miSOPROStoL [Cytotec] 800 mcg RECTAL ASDIRECTED PRN Saline Lock Insert [OM.PC] Routine Resuscitation Status Routine 06/27/20 11:03 Up ad Sasha [RC] ASDIRECTED CBC W/O DIFF,HEMOGRAM [HEME] Routine Acetaminophen [TylenoL] 650 mg PO Q6H PRN Benzocaine/Menthol [Dermoplast Pain Relief [place]] See Dose Instructions TOP Q4H PRN Docusate Sodium [Colace] 100 mg PO BID PRN Ibuprofen [Motrin] 800 mg PO Q8H PRN Oxytocin [Pitocin] 10 unit IM ONETIME PRN Simethicone 80 mg PO Q4H PRN Zolpidem [Ambien] 5 mg PO BEDTIME PRN miSOPROStoL [Cytotec] 800 mcg RECTAL ONETIME PRN Assess Lochia [WOMSER] Per Unit Routine Assess Uterine Involution [WOMSER] Per Unit Routine Breast Pump [WOMSER] Per Unit Routine Ice Therapy [OM.PC] Per Unit Routine Perineal Care [OM.PC] Per Unit Routine Saline Lock Insert [OM.PC] Urgent Sitz Bath [OM.PC] Per Unit Routine 06/27/20 11:35 CORONAVIRUS COVID-19 RAPID [MOLEC] Stat 06/27/20 Lunch Regular Diet [DIET] 06/27/20 12:19 DRUG SCREEN, URINE [URCHEM] Routine 06/27/20 Dinner Regular Diet [DIET] 06/28/20 09:00 Vit with Ca/FA/Iron [ Plus Iron] 1 each PO DAILY
[2020-06-27] MEDS: Ibuprofen 800 MG Tab PO PRN ×2 (12:34→20:36)
[2020-06-27] MEDS: Calcium Carbonate 500 MG Tab.Chew PO PRN ×2 (17:28→20:42)
[2020-06-27] MEDS: Acetaminophen 325 MG Tab PO PRN (20:37)
[2020-06-28] MEDS: Acetaminophen 325 MG Tab PO PRN ×3 (00:50→21:14)
[2020-06-28] MEDS: Calcium Carbonate 500 MG Tab.Chew PO PRN ×4 (00:50→21:14)
[2020-06-28] MEDS: Ibuprofen 800 MG Tab PO PRN ×2 (05:53→15:22)
--- NOTE | 2020-06-28 08:21 | PCM.PNPP ---
- General Info Date of Service: 06/28/20 Subjective Update: Patient is post day 1 from [facility]. She reports her lochia is mild. She plans to breastfeed and pump. She has pain controlled with OTC medications. She has been advancing her diet and has good PO intake. She denies nausea or vomiting. She has been urinating spontaneously. She has been ambulating. She has no complaints. Her blood pressures remain elevated. She continues to be asymptomatic. Her [facility] labs from yesterday were normal. She denies headache, visi on changes, abdominal pain, lower extremity edema. Functional Status: Reports: Pain Controlled - Review of Systems General: Denies: Fever, Fatigue HEENT: Denies: Headaches, Visual Changes Pulmonary: Denies: Shortness of Breath, Cough Cardiovascular: Denies: Edema, Lightheadedness Gastrointestinal: Denies: Nausea, Vomiting Genitourinary: Denies: Retention Skin: Denies: Rash Neurological: Denies: Headache - Patient Data Vital Signs - Most Recent: Last Vital Signs Temp 97.9 F 06/28/20 05:50 Pulse 63 06/28/20 05:50 Resp 18 06/28/20 05:50 BP 137/94 H 06/28/20 05:50 Pulse Ox 98 06/28/20 05:50 Weight - Most Recent: 163 lb I&O - Last 24 Hours: Intake & Output 06/27/20 06/28/20 06/28/20 22:59 06:59 14:59 Output Total 350 Balance -350 Lab Results - Last 24 Hours: Laboratory Results - last 24 hr 06/27/20 06/27/20 06/27/20 Range/Units 10:40 10:40 10:40 WBC (5.0-10.0) 10^3/uL RBC (4.2-5.4) 10^6/uL Hgb (12.0-16.0) g/dL Hct (37.0-47.0) % MCV (80-100) fL MCH (27.0-34.0) pg MCHC (33.0-35.0) g/dL Plt Count (150-450) 10^3/uL BUN (7-18) mg/dL Creatinine (0.55-1.02) mg/dL Est Cr Clr Drug Dosing Estimated GFR (MDRD) Uric Acid (2.6-6.0) mg/dL AST (15-37) U/L ALT (14-59) U/L Lactate Dehydrogenase (81-234) U/L Urine Color Yellow (YELLOW) Urine Appearance Slightly cloudy (CLEAR) Urine pH 6.0 (5.0-9.0) Ur Specific [place] 1.025 (1.005-1.030) Urine Protein Negative (NEGATIVE) Urine Glucose (UA) Negative (NEGATIVE) Urine Ketones Negative (NEGATIVE) Urine Occult Blood Trace-intact H (NEGATIVE) Urine Nitrite Negative (NEGATIVE) Urine Bilirubin Negative (NEGATIVE) Urine Urobilinogen 0.2 (0.2-1.0) mg/dL Ur Leukocyte Esterase Negative (NEGATIVE) Ur Random Creatinine 129.32 (No establ ref range) mg/dL U Random Total Protein 36.0 H (0.0-11.9) mg/dL Protein/Creatinin Ratio 278.4 H (<150.0) mg/g Urine Opiates Screen Negative (NEGATIVE) Ur Oxycodone Screen Negative (NEGATIVE) Urine Methadone Screen Negative (NEGATIVE) Ur Barbiturates Screen Negative (NEGATIVE) U Tricyclic Antidepress Negative (NEGATIVE) Ur Phencyclidine Scrn Negative (NEGATIVE) Ur Amphetamine Screen Negative (NEGATIVE) U Methamphetamines Scrn Negative (NEGATIVE) Urine MDMA Screen Negative (NEGATIVE) U Benzodiazepines Scrn Negative (NEGATIVE) Urine Cocaine Screen Negative (NEGATIVE) U Marijuana (THC) Screen Negative (NEGATIVE) SARS CoV-2 RNA Rapid MARCELO (NEGATIVE) 06/27/20 06/27/20 06/27/20 Range/Units 11:35 11:40 11:40 WBC 11.4 H (5.0-10.0) 10^3/uL RBC 3.96 L (4.2-5.4) 10^6/uL Hgb 11.4 L (12.0-16.0) g/dL Hct 34.7 L (37.0-47.0) % MCV 87.6 D (80-100) fL MCH 28.8 (27.0-34.0) pg MCHC 32.9 L (33.0-35.0) g/dL Plt Count 220 (150-450) 10^3/uL BUN 7 (7-18) mg/dL Creatinine 0.57 (0.55-1.02) mg/dL Est Cr Clr Drug Dosing TNP Estimated GFR (MDRD) > 60 Uric Acid 3.7 (2.6-6.0) mg/dL AST 26 (15-37) U/L ALT 15 (14-59) U/L Lactate Dehydrogenase 216 (81-234) U/L Urine Color (YELLOW) Urine Appearance (CLEAR) Urine pH (5.0-9.0) Ur Specific [place] (1.005-1.030) Urine Protein (NEGATIVE) Urine Glucose (UA) (NEGATIVE) Urine Ketones (NEGATIVE) Urine Occult Blood (NEGATIVE) Urine Nitrite (NEGATIVE) Urine Bilirubin (NEGATIVE) Urine Urobilinogen (0.2-1.0) mg/dL Ur Leukocyte Esterase (NEGATIVE) Ur Random Creatinine (No establ ref range) mg/dL U Random Total Protein (0.0-11.9) mg/dL Protein/Creatinin Ratio (<150.0) mg/g Urine Opiates Screen (NEGATIVE) Ur Oxycodone Screen (NEGATIVE) Urine Methadone Screen (NEGATIVE) Ur Barbiturates Screen (NEGATIVE) U Tricyclic Antidepress (NEGATIVE) Ur Phencyclidine Scrn (NEGATIVE) Ur Amphetamine Screen (NEGATIVE) U Methamphetamines Scrn (NEGATIVE) Urine MDMA Screen (NEGATIVE) U Benzodiazepines Scrn (NEGATIVE) Urine Cocaine Screen (NEGATIVE) U Marijuana (THC) Screen (NEGATIVE) SARS CoV-2 RNA Rapid MARCELO Negative (NEGATIVE) 06/28/20 Range/Units 05:49 WBC 11.3 H (5.0-10.0) 10^3/uL RBC 3.51 L (4.2-5.4) 10^6/uL Hgb 10.1 L (12.0-16.0) g/dL Hct 31.3 L (37.0-47.0) % MCV 89.2 (80-100) fL MCH 28.8 (27.0-34.0) pg MCHC 32.3 L (33.0-35.0) g/dL Plt Count 264 (150-450) 10^3/uL BUN (7-18) mg/dL Creatinine (0.55-1.02) mg/dL Est Cr Clr Drug Dosing Estimated GFR (MDRD) Uric Acid (2.6-6.0) mg/dL AST (15-37) U/L ALT (14-59) U/L Lactate Dehydrogenase (81-234) U/L Urine Color (YELLOW) Urine Appearance (CLEAR) Urine pH (5.0-9.0) Ur Specific [place] (1.005-1.030) Urine Protein (NEGATIVE) Urine Glucose (UA) (NEGATIVE) Urine Ketones (NEGATIVE) Urine Occult Blood (NEGATIVE) Urine Nitrite (NEGATIVE) Urine Bilirubin (NEGATIVE) Urine Urobilinogen (0.2-1.0) mg/dL Ur Leukocyte Esterase (NEGATIVE) Ur Random Creatinine (No establ ref range) mg/dL U Random Total Protein (0.0-11.9) mg/dL Protein/Creatinin Ratio (<150.0) mg/g Urine Opiates Screen (NEGATIVE) Ur Oxycodone Screen (NEGATIVE) Urine Methadone Screen (NEGATIVE) Ur Barbiturates Screen (NEGATIVE) U Tricyclic Antidepress (NEGATIVE) Ur Phencyclidine Scrn (NEGATIVE) Ur Amphetamine Screen (NEGATIVE) U Methamphetamines Scrn (NEGATIVE) Urine MDMA Screen (NEGATIVE) U Benzodiazepines Scrn (NEGATIVE) Urine Cocaine Screen (NEGATIVE) U Marijuana (THC) Screen (NEGATIVE) SARS CoV-2 RNA Rapid MARCELO (NEGATIVE) Med Orders - Current: Current Medications Acetaminophen (Tylenol) 650 mg PO Q6H PRN PRN Reason: mild pain or fever Last Admin: 06/28/20 05:52 Dose: 650 mg Documented by: Benzocaine/Menthol (Dermoplast Pain Relief [place]) 0 gm TOP Q4H PRN PRN Reason: Perineal comfort measures Calcium Carbonate/Glycine (Tums) 500 mg PO Q2H PRN PRN Reason: Indigestion Last Admin: 06/28/20 05:51 Dose: 500 mg Documented by: Carboprost Tromethamine (Hemabate Ds) 250 mcg IM ASDIRECTED PRN PRN Reason: HEMORRHAGE Docusate Sodium (Colace) 100 mg PO BID PRN PRN Reason: Constipation Tranexamic Acid 1,000 mg/ (Sodium Chloride) 110 mls @ 660 mls/hr IV ONETIME PRN PRN Reason: Bleeding Oxytocin/Sodium Chloride (Pitocin In Ns 30 Unit/500 Ml) 30 unit in 500 mls @ 2 mls/hr IV TITRATE ELLIOT; Protocol Last Titration: 06/27/20 13:45 Dose: 0 munits/min, 0 mls/hr Documented by: Lactated Ringer's (Ringers, Lactated) 1,000 mls @ 125 mls/hr IV ASDIRECTED ELLIOT Last Admin: 06/27/20 10:33 Dose: 125 mls/hr Documented by: Ibuprofen (Motrin) 800 mg PO Q8H PRN PRN Reason: Mild Pain or Fever Last Admin: 06/28/20 05:53 Dose: 800 mg Documented by: Lidocaine HCl (Xylocaine-Mpf 1%) 30 ml INJECT ASDIRECTED PRN PRN Reason: Perineal Repair Methylergonovine Maleate (Methergine) 0.2 mg IM ASDIRECTED PRN PRN Reason: Hemorrhage Misoprostol (Cytotec) 800 mcg RECTAL ASDIRECTED PRN PRN Reason: Hemorrhage Oxytocin (Pitocin) 10 unit IM ONETIME PRN PRN Reason: Bleeding Prenat Multivit/[place]/Iron/Folic Ac ( Plus Iron) 1 each PO DAILY ELLIOT Simethicone (Simethicone) 80 mg PO Q4H PRN PRN Reason: Gas Sodium Chloride (Saline Flush) 10 ml FLUSH ASDIRECTED PRN PRN Reason: Keep Vein Open Zolpidem Tartrate (Ambien) 5 mg PO BEDTIME PRN PRN Reason: Insomnia Discontinued Medications Lactated Ringer's (Ringers, Lactated) 1,000 mls @ 999 mls/hr IV BOLUS ONE Stop: 06/27/20 12:00 Last Admin: 06/28/20 00:59 Dose: Not Given Documented by: - Interaction Support Person: Significant Other - Recovery Exam Fundal Tone: Firm Fundal Level: At Umbilicus Fundal Placement: Midline Lochia Amount: Small Lochia Color: Rubra/Red Perineum Description: Intact, Minimal Bruising/Swelling Episiotomy/Laceration: None Bladder Status: Voiding Urinary Elimination: Voided - Exam General: Alert, Oriented HEENT: Mucous Membr. Moist/[place] Neck: Supple Lungs: Clear to Auscultation, Normal Respiratory Effort Cardiovascular: Regular Rate, Regular Rhythm GI/Abdominal Exam: Soft, Non-Tender, No Distention Extremities: Non-Tender, No Pedal Edema Skin: Warm, Dry, Intact Neurological: No New Focal Deficit, Reflexes Equal Bilateral - Problem List & Annotations (1) labor SNOMED Code(s): 0177760 Code(s): O60.00 - LABOR WITHOUT DELIVERY, UNSPECIFIED TRIMESTER Status: Acute Current Visit: Yes (2) Grand multipara in labor in third trimester SNOMED Code(s): 714018496, 767620640 Code(s): O80 - ENCOUNTER FOR FULL-TERM UNCOMPLICATED DELIVERY Status: Acute Current Visit: Yes (3) Advanced maternal age (AMA) in SNOMED Code(s): 178951714 Code(s): JVQ1371 - Status: Acute Current Visit: Yes (4) History of gestational diabetes SNOMED Code(s): 999332450 Code(s): Z86.32 - PERSONAL HISTORY OF GESTATIONAL DIABETES Status: Acute Current Visit: Yes (5) Gestational hypertension SNOMED Code(s): 524977245 Code(s): O13.9 - GESTATIONAL HTN W/O SIGNIFICANT PROTEINURIA, UNSP TRIMESTER Status: Acute Current Visit: Yes (6) Rubella immune SNOMED Code(s): 226457812 Code(s): Z78.9 - OTHER SPECIFIED HEALTH STATUS Status: Acute Current Visit: Yes (7) Anemia during SNOMED Code(s): 750080112 Code(s): O99.019 - ANEMIA COMPLICATING , UNSPECIFIED TRIMESTER Status: Acute Current Visit: Yes (8) Late care SNOMED Code(s): 694010167, 155039907 Code(s): O09.30 - SUPRVSN OF PREG W INSUFFICIENT ANTENAT CARE, UNSP TRIMESTER Status: Acute Current Visit: Yes - Problem List Review Problem List Initiated/Reviewed/Updated: Yes - My Orders Last 24 Hours: My Active Orders 06/27/20 11:00 Patient Status [ADT] Routine Notify Provider Vital Signs OB [RC] ASDIRECTED Up ad Sasha [RC] ASDIRECTED Vital Signs [RC] 08,20 Carboprost Tromethamine [Hemabate DS] 250 mcg IM ASDIRECTED PRN Lactated Ringers [Ringers, Lactated] 1,000 ml IV ASDIRECTED Lidocaine 1% [Xylocaine-MPF 1%] 30 ml INJECT ASDIRECTED PRN Methylergonovine [Methergine] 0.2 mg IM ASDIRECTED PRN Oxytocin/Normal Saline [Pitocin in NS 30 UNIT/500 ML] 30 unit in 500 ml IV TITRATE Sodium Chloride 0.9% [Saline Flush] 10 ml FLUSH ASDIRECTED PRN Tranexamic Acid [Cyklokapron] 1,000 mg Sodium Chloride 0.9% [Normal Saline] 100 ml IV ONETIME miSOPROStoL [Cytotec] 800 mcg RECTAL ASDIRECTED PRN Saline Lock Insert [OM.PC] Routine Resuscitation Status Routine 06/27/20 11:03 Acetaminophen [TylenoL] 650 mg PO Q6H PRN Benzocaine/Menthol [Dermoplast Pain Relief [place]] See Dose Instructions TOP Q4H PRN Docusate Sodium [Colace] 100 mg PO BID PRN Ibuprofen [Motrin] 800 mg PO Q8H PRN Oxytocin [Pitocin] 10 unit IM ONETIME PRN Simethicone 80 mg PO Q4H PRN Zolpidem [Ambien] 5 mg PO BEDTIME PRN Assess Lochia [WOMSER] Per Unit Routine Assess Uterine Involution [WOMSER] Per Unit Routine Breast Pump [WOMSER] Per Unit Routine Ice Therapy [OM.PC] Per Unit Routine Perineal Care [OM.PC] Per Unit Routine Saline Lock Insert [OM.PC] Urgent Sitz Bath [OM.PC] Per Unit Routine 06/27/20 Lunch Regular Diet [DIET] 06/27/20 16:57 Calcium Carbonate [Tums] 500 mg PO Q2H PRN 06/27/20 Dinner Regular Diet [DIET] 06/28/20 09:00 Vit with Ca/FA/Iron [ Plus Iron] 1 each PO DAILY - Plan Plan:: Continue post cares. Blood pressures remain elevated and approaching severe range at times. Will sta rt 100 mg Labetalol BID. Will monitor closely. May need to repeat PIH labs tomorrow if not better controlled. Anticipate discharge home tomorrow. Chayo Dumont MD
[2020-06-28] MEDS: Prenatal Multivitamin with Calcium/Folic Acid/Iron Tab PO SCH (08:24)
[2020-06-28] MEDS: Labetalol 100 MG Tab PO SCH ×2 (09:50→21:14)
[2020-06-29] MEDS: Ibuprofen 800 MG Tab PO PRN (03:41)
[2020-06-29] MEDS: Acetaminophen 325 MG Tab PO PRN (03:42)
--- NOTE | 2020-06-29 08:51 | PCM.DCSUM1 ---
Discharge Summary - Hospital Course Free Text/Narrative:: Patient presented to Labor and Delivery in active labor. She progressed to complete and delivered viable female infant over intact perineum. required CPAP for 6 hours but was weaned off. Patient's blood pressures were monitored and persistently elevated. PIH labs were normal. Labetalol was started and blood pressures normalized. She had an uneventful hospital course and was discharged home on labetalol with follow up in 2 days. - Discharge Data Discharge Date: 06/29/20 Discharge Disposition: Home, Self-Care 01 Condition: Good - Referral to Home Health Primary Care Physician: Linsey Nieves MD - Discharge Diagnosis/Problem(s) (1) labor SNOMED Code(s): 9249381 ICD Code: O60.00 - LABOR WITHOUT DELIVERY, UNSPECIFIED TRIMESTER Status: Acute Current Visit: Yes (2) Grand multipara in labor in third trimester SNOMED Code(s): 914273151, 979517298 ICD Code: O80 - ENCOUNTER FOR FULL-TERM UNCOMPLICATED DELIVERY Status: Acute Current Visit: Yes (3) Advanced maternal age (AMA) in SNOMED Code(s): 256956567 ICD Code: [id number] - Status: Acute Current Visit: Yes (4) History of gestational diabetes SNOMED Code(s): 015803787 ICD Code: Z86.32 - PERSONAL HISTORY OF GESTATIONAL DIABETES Status: Acute Current Visit: Yes (5) Gestational hypertension SNOMED Code(s): 324193305 ICD Code: O13.9 - GESTATIONAL HTN W/O SIGNIFICANT PROTEINURIA, UNSP TRIMESTER Status: Acute Current Visit: Yes (6) Rubella immune SNOMED Code(s): 926654598 ICD Code: Z78.9 - OTHER SPECIFIED HEALTH STATUS Status: Acute Current Visit: Yes (7) Anemia during SNOMED Code(s): 265601992 ICD Code: O99.019 - ANEMIA COMPLICATING , UNSPECIFIED TRIMESTER Status: Acute Current Visit: Yes (8) Late care SNOMED Code(s): 889822686, 140327500 ICD Code: O09.30 - SUPRVSN OF PREG W INSUFFICIENT ANTENAT CARE, UNSP TRIMESTER Status: Acute Current Visit: Yes - Discharge Plan *PRESCRIPTION DRUG MONITORING PROGRAM REVIEWED*: Not Applicable *COPY OF PRESCRIPTION DRUG MONITORING REPORT IN PATIENT [facility]: Not Applicable Home Medications: Home Meds Mv-Mn/Iron/FA/Herbal/Digestive [ One Tablet] 1 tab PO DAILY 02/08/18 [History] Referrals: Selena Nieves MD [Primary Care Provider] - - Discharge Summary/Plan Comment DC Time >30 min.: No - Patient Data Vitals - Most Recent: Last Vital Signs Temp 96.8 F L 06/28/20 19:30 Pulse 74 06/28/20 21:14 Resp 18 06/28/20 19:30 BP 121/92 H 06/28/20 21:14 Pulse Ox 97 06/28/20 19:30 Weight - Most Recent: 163 lb Med Orders - Current: Current Medications Acetaminophen (Tylenol) 650 mg PO Q6H PRN PRN Reason: mild pain or fever Last Admin: 06/29/20 03:42 Dose: 650 mg Documented by: Benzocaine/Menthol (Dermoplast Pain Relief [place]) 0 gm TOP Q4H PRN PRN Reason: Perineal comfort measures Calcium Carbonate/Glycine (Tums) 500 mg PO Q2H PRN PRN Reason: Indigestion Last Admin: 06/28/20 21:14 Dose: 500 mg Documented by: Carboprost Tromethamine (Hemabate Ds) 250 mcg IM ASDIRECTED PRN PRN Reason: HEMORRHAGE Docusate Sodium (Colace) 100 mg PO BID PRN PRN Reason: Constipation Last Admin: 06/28/20 21:14 Dose: 100 mg Documented by: Tranexamic Acid 1,000 mg/ (Sodium Chloride) 110 mls @ 660 mls/hr IV ONETIME PRN PRN Reason: Bleeding Oxytocin/Sodium Chloride (Pitocin In Ns 30 Unit/500 Ml) 30 unit in 500 mls @ 2 mls/hr IV TITRATE ELLIOT; Protocol Last Titration: 06/27/20 13:45 Dose: 0 munits/min, 0 mls/hr Documented by: Lactated Ringer's (Ringers, Lactated) 1,000 mls @ 125 mls/hr IV ASDIRECTED ELLIOT Last Admin: 06/27/20 10:33 Dose: 125 mls/hr Documented by: Ibuprofen (Motrin) 800 mg PO Q8H PRN PRN Reason: Mild Pain or Fever Last Admin: 06/29/20 03:41 Dose: 800 mg Documented by: Labetalol HCl (Normodyne) 100 mg PO BID [facility] Last Admin: 06/28/20 21:14 Dose: 100 mg Documented by: Lidocaine HCl (Xylocaine-Mpf 1%) 30 ml INJECT ASDIRECTED PRN PRN Reason: Perineal Repair Methylergonovine Maleate (Methergine) 0.2 mg IM ASDIRECTED PRN PRN Reason: Hemorrhage Misoprostol (Cytotec) 800 mcg RECTAL ASDIRECTED PRN PRN Reason: Hemorrhage Oxytocin (Pitocin) 10 unit IM ONETIME PRN PRN Reason: Bleeding Prenat Multivit/[place]/Iron/Folic Ac ( Plus Iron) 1 each PO DAILY [facility] Last Admin: 06/28/20 08:24 Dose: 1 each Documented by: Simethicone (Simethicone) 80 mg PO Q4H PRN PRN Reason: Gas Sodium Chloride (Saline Flush) 10 ml FLUSH ASDIRECTED PRN PRN Reason: Keep Vein Open Zolpidem Tartrate (Ambien) 5 mg PO BEDTIME PRN PRN Reason: Insomnia Discontinued Medications Lactated Ringer's (Ringers, Lactated) 1,000 mls @ 999 mls/hr IV BOLUS ONE Stop: 06/27/20 12:00 Last Admin: 06/28/20 00:59 Dose: Not Given Documented by:
--- NOTE | 2020-06-29 08:51 | PCM.PNPP ---
- General Info Date of Service: 06/29/20 Subjective Update: Patient is post day 2 from [facility]. She is feeling well. Her blood pressures were elevated yesterday so she was started on 100 mg Labetalol BID. Her blood pressures have been well controlled since then. She continues to deny headaches, vision changes, increased swelling, nausea, vomiting, or abdominal pain. Her lochia is mild. Her pain is controlled with OTC medications. She is passing gas and having bowel movements. She is /pumping. Denies concerns today and would like discharge home. Functional Status: Reports: Pain Controlled - Review of Systems General: Denies: Fever, Fatigue, Chills HEENT: Denies: Visual Changes Pulmonary: Denies: Shortness of Breath Cardiovascular: Denies: Chest Pain, Edema Gastrointestinal: Denies: Abdominal Pain, Nausea, Vomiting Neurological: Denies: Headache - Patient Data Vital Signs - Most Recent: Last Vital Signs Temp 96.8 F L 06/28/20 19:30 Pulse 74 06/28/20 21:14 Resp 18 06/28/20 19:30 BP 121/92 H 06/28/20 21:14 Pulse Ox 97 06/28/20 19:30 Weight - Most Recent: 163 lb Med Orders - Current: Current Medications Acetaminophen (Tylenol) 650 mg PO Q6H PRN PRN Reason: mild pain or fever Last Admin: 06/29/20 03:42 Dose: 650 mg Documented by: Benzocaine/Menthol (Dermoplast Pain Relief [place]) 0 gm TOP Q4H PRN PRN Reason: Perineal comfort measures Calcium Carbonate/Glycine (Tums) 500 mg PO Q2H PRN PRN Reason: Indigestion Last Admin: 06/28/20 21:14 Dose: 500 mg Documented by: Carboprost Tromethamine (Hemabate Ds) 250 mcg IM ASDIRECTED PRN PRN Reason: HEMORRHAGE Docusate Sodium (Colace) 100 mg PO BID PRN PRN Reason: Constipation Last Admin: 06/28/20 21:14 Dose: 100 mg Documented by: Tranexamic Acid 1,000 mg/ (Sodium Chloride) 110 mls @ 660 mls/hr IV ONETIME PRN PRN Reason: Bleeding Oxytocin/Sodium Chloride (Pitocin In Ns 30 Unit/500 Ml) 30 unit in 500 mls @ 2 mls/hr IV TITRATE ELLIOT; Protocol Last Titration: 06/27/20 13:45 Dose: 0 munits/min, 0 mls/hr Documented by: Lactated Ringer's (Ringers, Lactated) 1,000 mls @ 125 mls/hr IV ASDIRECTED [facility] Last Admin: 06/27/20 10:33 Dose: 125 mls/hr Documented by: Ibuprofen (Motrin) 800 mg PO Q8H PRN PRN Reason: Mild Pain or Fever Last Admin: 06/29/20 03:41 Dose: 800 mg Documented by: Labetalol HCl (Normodyne) 100 mg PO BID [facility] Last Admin: 06/28/20 21:14 Dose: 100 mg Documented by: Lidocaine HCl (Xylocaine-Mpf 1%) 30 ml INJECT ASDIRECTED PRN PRN Reason: Perineal Repair Methylergonovine Maleate (Methergine) 0.2 mg IM ASDIRECTED PRN PRN Reason: Hemorrhage Misoprostol (Cytotec) 800 mcg RECTAL ASDIRECTED PRN PRN Reason: Hemorrhage Oxytocin (Pitocin) 10 unit IM ONETIME PRN PRN Reason: Bleeding Prenat Multivit/[place]/Iron/Folic Ac ( Plus Iron) 1 each PO DAILY [facility] Last Admin: 06/28/20 08:24 Dose: 1 each Documented by: Simethicone (Simethicone) 80 mg PO Q4H PRN PRN Reason: Gas Sodium Chloride (Saline Flush) 10 ml FLUSH ASDIRECTED PRN PRN Reason: Keep Vein Open Zolpidem Tartrate (Ambien) 5 mg PO BEDTIME PRN PRN Reason: Insomnia Discontinued Medications Lactated Ringer's (Ringers, Lactated) 1,000 mls @ 999 mls/hr IV BOLUS ONE Stop: 06/27/20 12:00 Last Admin: 06/28/20 00:59 Dose: Not Given Documented by: - Interaction Support Person: Significant Other - Recovery Exam Fundal Tone: Firm Fundal Level: 1 Fingerbreadths Below Umbilicus Fundal Placement: Midline Lochia Amount: Scant Lochia Color: Rubra/Red Perineum Description: Intact, Minimal Bruising/Swelling Episiotomy/Laceration: None Bladder Status: Nonpalpable, Voiding Urinary Elimination: Voided - Exam General: Alert, Oriented HEENT: Mucous Membr. Moist/[place] Neck: Supple Lungs: Clear to Auscultation, Normal Respiratory Effort Cardiovascular: Regular Rate, Regular Rhythm GI/Abdominal Exam: Normal Bowel Sounds, Soft, Non-Tender, No Distention Extremities: Normal Inspection, Normal Range of Motion, Non-Tender, No Pedal Edema Skin: Warm, Dry Neurological: No New Focal Deficit, Reflexes Equal Bilateral - Problem List & Annotations (1) labor SNOMED Code(s): 8729864 Code(s): O60.00 - LABOR WITHOUT DELIVERY, UNSPECIFIED TRIMESTER Status: Acute Current Visit: Yes (2) Grand multipara in labor in third trimester SNOMED Code(s): 573694480, 595537372 Code(s): O80 - ENCOUNTER FOR FULL-TERM UNCOMPLICATED DELIVERY Status: Acute Current Visit: Yes (3) Advanced maternal age (AMA) in SNOMED Code(s): 185288432 Code(s): NEB6011 - Status: Acute Current Visit: Yes (4) History of gestational diabetes SNOMED Code(s): 020794943 Code(s): Z86.32 - PERSONAL HISTORY OF GESTATIONAL DIABETES Status: Acute Current Visit: Yes (5) Gestational hypertension SNOMED Code(s): 761734586 Code(s): O13.9 - GESTATIONAL HTN W/O SIGNIFICANT PROTEINURIA, UNSP TRIMESTER Status: Acute Current Visit: Yes (6) Rubella immune SNOMED Code(s): 664509858 Code(s): Z78.9 - OTHER SPECIFIED HEALTH STATUS Status: Acute Current Visit: Yes (7) Anemia during SNOMED Code(s): 698063940 Code(s): O99.019 - ANEMIA COMPLICATING , UNSPECIFIED TRIMESTER Status: Acute Current Visit: Yes (8) Late care SNOMED Code(s): 859977032, 942470887 Code(s): O09.30 - SUPRVSN OF PREG W INSUFFICIENT ANTENAT CARE, UNSP TRIMESTER Status: Acute Current Visit: Yes - Problem List Review Problem List Initiated/Reviewed/Updated: Yes - My Orders Last 24 Hours: My Active Orders 06/28/20 09:00 Vit with Ca/FA/Iron [ Plus Iron] 1 each PO DAILY 06/28/20 09:30 Labetalol [Normodyne] 100 mg PO BID - Plan Plan:: Continue post cares. Continue labetalol 100 mg BID, prescription sent to pharmacy. Suspect she has chronic hypertension exacerbated by since we have no previous vitals prior to this or at vitals at the beginning of . Discharge information reviewed in detail. Red flag signs/symptoms discussed. Follow up appointment scheduled for Saturday to recheck blood pressure. Discharge home today. Chayo Dumont MD
[2020-06-29 08:56] VITALS: BP 139/87; PULSE 72
[2020-06-29] MEDS: Labetalol 100 MG Tab PO SCH (13:33)
[2020-06-29] MEDS: Prenatal Multivitamin with Calcium/Folic Acid/Iron Tab PO SCH (13:33)
== END 2020-06-29 11:10 | disposition home or self-care (01) | DRG 807 ==
LOC: DL.OBCHECK 10:08 → DL.OB 10:44
PROVIDERS: ADMIT Family Medicine; ATTEND Family Medicine
PROC: 10E0XZZ Delivery of Products of Conception, External Approach (ICD-10-PCS; principal; 2020-06-27)
DX: O60.14X0 Preterm labor third trimester with preterm delivery third trimester, not applicable or unspecified (principal); Z37.0 Single live birth; O24.429 Gestational diabetes mellitus in childbirth, unspecified control; O13.4 Gestational [pregnancy-induced] hypertension without significant proteinuria, complicating childbirth; O99.02 Anemia complicating childbirth; D64.9 Anemia, unspecified; Z3A.34 34 weeks gestation of pregnancy; Z78.9 Other specified health status; O77.0 Labor and delivery complicated by meconium in amniotic fluid; Z20.828 Contact with and (suspected) exposure to other viral communicable diseases
CPT/HCPCS: 36415; 59409; 80305-QW; 81003; 82565; 82570; 83615; 84156; 84450; 84460; 84520; 84550; 85027; A9270-GY; J2590; J7120; U0002

== ENCOUNTER 2024-01-03 08:12 | Emergency (ER) | payer MEDICAID, OTHER ==
[2024-01-03 09:21] VITALS: BP 130/70; PULSE 72
== END 2024-01-03 09:19 | disposition home or self-care (01) ==
LOC: DL.ED 08:12
DX: S22.41XA Multiple fractures of ribs, right side, initial encounter for closed fracture (principal); Z91.048 Other nonmedicinal substance allergy status; Z79.899 Other long term (current) drug therapy; V18.4XXA Pedal cycle driver injured in noncollision transport accident in traffic accident, initial encounter; Y93.55 Activity, bike riding
CPT/HCPCS: 71101-RT; 94010; 99283